=== PATIENT | female | born 1955 | race Caucasian/White ===

== ENCOUNTER → 2021-09-09 09:11 | Outpatient (POV) | payer SELFPAY | PROVIDERS: Visit Provider Dermatology | DX: Z00.00 Encounter for general adult medical examination without abnormal findings (principal) ==

== ENCOUNTER 2021-09-17 13:08 | Emergency (ER) | payer MEDICARE, SELFPAY ==
[2021-09-17 13:50] VITALS: BP 155/90; PULSE 70; RESP 20; TEMP 36.4; O2SAT 99; BMI 24.0
--- NOTE | 2021-09-17 14:44 | HMH.EDUTC ---
[facility] [place] Disposition Clinical Impression: Shingles Qualifiers: Herpes zoster complications: without complications Qualified Code(s): B02.9 - Zoster without complications Disposition: Home, Self-Care Condition on Discharge: Good Instructions: Shingles, DI for Shingles, Acyclovir Additional Instructions: Take medication as prescribed Return to the emergency department if: You have weakness in an arm or leg. You have dizziness, a severe headache, or hearing or vision loss. You have painful, red, warm skin around the blisters, or the blisters drain pus. Your neck is stiff or you have trouble moving it. Call your doctor if: A painful rash appears near your eye. The rash spreads to more areas and your pain worsens. You feel weak or have a headache. You have a cough, chills, or a fever. You have abdominal pain or nausea, or you are vomiting. You have questions or concerns about your condition or care. Self-care: Apply a cool, wet compress or take a cool bath. This may help decrease itching and pain. Keep your rash clean and dry. Cover your rash with a bandage. Do not use bandages with adhesive. Clothes may irritate your skin. Wash your hands often cover your cough Prescriptions: Acyclovir 800 mg PO 5XDAY 7 Days #35 tab Transmission Status: Pending to [id number] Referrals: Provider,Referral, [Primary Care Provider] - As needed Time of Disposition: 14:54 Medical Decision Making - Jose A Inquiry Pt receiving controlled substance: No Jose A was queried for this patient: No Vital Signs: 09/17/21 13:50 Temperature 97.6 F Temperature Source Oral Pulse Rate [Left Brachial] 70 Respiratory Rate 20 Blood Pressure [Left Arm] 155/90 H Blood Pressure Mean [Left Arm] 111 Blood Pressure Source [Left Arm] Automatic Cuff Blood Pressure Position [Left Arm] Sitting 02 Sat by Pulse Oximetry 99 Oxygen Delivery Method Room Air [facility] [place] HPI - General Stated complaint: painful rash Time Seen by Provider: 09/17/21 14:45 Mode of Arrival: Ambulatory Source of Information: Patient Limitations: No Limitations Description of Symptoms (Recalled from Triage Doc. by RN): PATIENT C/O PAINFUL AND BURNING RASH TO RIGHT SIDE OF NECK, RIGHT SHOULDER, CHEST, BEHIND RIGHT EAR AND ON HAIRLINE SINCE WEDNESDAY NIGHT HEENT Symptoms (Recalled from RN notes): No Resp Symptoms (Recalled from RN notes): No Skin Symptoms (Recalled from RN notes): Yes MS Symptoms (Recalled from RN notes): No Functional Status (Recalled from RN notes): WNL - History of Present Illness Provider Complaint: Patient states that she has had shingles before States that she thinks she may have it again States that she started with prickly like feeling on her skin behind her ear and since then she has developed a painful rash on the back of her ear, hairline, neck and shoulder area on on her chin States that it hurts when its touched or scratched - Related Data Home Medications Medication Instructions Recorded Confirmed Hydroxychloroquine Sulfate 400 mg PO DAILY 09/17/21 09/17/21 [Plaquenil 200mg tablet] Levothyroxine Sodium 125 mcg PO DAILY 09/17/21 09/17/21 [Levothyroxine 125mcg (0.125mg) Tab] Previous Rx's Medication Instructions Recorded Acyclovir 800 mg PO 5XDAY 7 Days #35 tab 09/17/21 Allergies Allergy/AdvReac Type Severity Reaction Status Date / Time celecoxib [From Celebrex] Allergy Verified 09/17/21 14:09 lidocaine Allergy Verified 09/17/21 14:09 morphine Allergy Verified 09/17/21 14:09 tetracaine Allergy Verified 09/17/21 14:09 - Worker's Comp Is this a Worker's Comp case?: No [facility] History - Hepatitis A Screen Attestation statement:: This patient has been screened for Hepatitis A risk factors. I have reviewed the patient's past medical history: Yes - Social History Alcohol Intake: never Occupational Status: other ROS Obtained: Yes All systems reviewed & no additional complaints, Yes Systems reviewed as appropria
[2021-09-17 14:56] VITALS: BP 155/90; PULSE 70; RESP 20; TEMP 36.4; O2SAT 99
== END 2021-09-17 15:05 | disposition home or self-care (01) ==
PROVIDERS: Emergency Provider Nurse Practitioner
DX: B02.9 Zoster without complications (principal); R21 Rash and other nonspecific skin eruption
CPT/HCPCS: 99212; G0463

== ENCOUNTER → 2022-01-06 09:20 | Outpatient (POV) | payer MEDICARE, SELFPAY | PROVIDERS: Visit Provider Dermatology | DX: Z00.00 Encounter for general adult medical examination without abnormal findings (principal) ==

== ENCOUNTER 2022-08-08 17:46 | Emergency (ER) | payer MEDICARE, SELFPAY ==
[2022-08-08 17:48] VITALS: BP 149/99; PULSE 83; RESP 16; TEMP 36.4; O2SAT 94; BMI 23.3
[2022-08-08 17:54] VITALS: BP 149/99; PULSE 88; RESP 18; TEMP 36.5; O2SAT 93; BMI 23.3
--- NOTE | 2022-08-08 18:16 | XR_ITS ---
PROCEDURE INFORMATION: Exam: XR Chest Exam date and time: 08/08/2022 6:13 PM Age: 67 years old Clinical indication: Shortness of breath; Additional info: SOA TECHNIQUE: Imaging protocol: Radiologic exam of the chest. Views: 2 views. COMPARISON: No relevant prior studies available. FINDINGS: Lungs: Unremarkable. No consolidation. Pleural spaces: Unremarkable. No pleural effusion. No pneumothorax. Heart/Mediastinum: Unremarkable. No cardiomegaly. Bones/joints: Unremarkable. IMPRESSION: No acute findings.
--- NOTE | 2022-08-08 18:31 | HMH.EDSOB ---
Discharge Plan Disposition Patient Disposition: Home, Self-Care Condition: Fair Prescriptions Prescriptions: New prednisone 20 mg tablet 60 mg PO DAILY Qty: 15 0RF albuterol sulfate 90 mcg/actuation HFA aerosol inhaler 2 inh inhalation Q6H PRN (Reason: shortness of breath or wheezing) Qty: 6.7 0RF No Action levothyroxine 125 MCG tablet 125 mcg PO DAILY hydroxychloroquine 200 MG tablet 400 mg PO DAILY acyclovir 800 MG tablet 800 mg PO 5XDAY 7 Days Qty: 35 0RF Referrals Follow up/Referrals: Gilda Baker MD [Primary Care Provider] - See instructions Activity Restrictions/Add. Instructions Additional Instructions/Restrictions: Take all medications as prescribed. Follow-up with your primary care doctor in about 2 to 3 days if you do not feel better. You have been given a shot of steroids today which will be good until tomorrow. Tomorrow you should start taking the medication that I have prescribed for you and sent to the local [facility] pharmacy. I also sent a prescription for an albuterol inhaler to the same pharmacy Clinical Impressions Clinical Impression: Asthma with exacerbation Discharge ED Provider: Stephen Saleh Resp/SOB HPI General Chief Complaint: Shortness of Breath/Dyspnea Stated Complaint: congestion, soa Time Seen by Provider: 08/08/22 18:30 Mode of Arrival: Ambulatory Limitations: No Limitations Description of Symptoms (Recalled from ER Triage Doc. by RN): Pt reports feeling like asthma is acting up, reports has has asthma in the past . Pt reports wheezes and having to use primetine mist inhaler otc at the pharmacy. Pt reports productive cough, no known fever. Pt also reports sinus drainage. Pt reports symptoms began approx 3 weeks ago but have been worsening. History of Present Illness The patient presents to the emergency department from the urgent treatment center for shortness of breath. She has a history of asthma. She has not used any inhalers recently. She also has a history of rheumatoid arthritis. She states that she has been coughing for the last week or 2. Her symptoms have worsened over the last few days. She denies smoking. She denies congestive heart failure. She denies renal failure. She also denies swelling. MD Complaint: shortness of breath, cough and asthma attack Related Data Home Medications Medication Instructions Recorded Confirmed hydroxychloroquine 200 mg tablet 400 mg PO DAILY . 09/17/21 09/17/21 levothyroxine 125 mcg tablet 125 mcg PO DAILY THYROID 09/17/21 09/17/21 Previous Rx's Medication Instructions Recorded acyclovir 800 mg tablet 800 mg PO 5XDAY 7 days #35 tabs 09/17/21 albuterol sulfate 90 mcg/actuation 2 inh inhalation Q6H PRN shortness 08/08/22 aerosol inhaler of breath or wheezing #6.7 grams prednisone 20 mg tablet 60 mg PO DAILY #15 tabs 08/08/22 Allergies Allergy/AdvReac Type Severity Reaction Status Date / Time celecoxib [From Celebrex] Allergy Verified 09/17/21 14:09 lidocaine Allergy Verified 09/17/21 14:09 morphine Allergy Verified 09/17/21 14:09 tetracaine Allergy Verified 09/17/21 14:09 PFSH [facility] Disclaimer: The information contained in this section may have been updated after the patient was seen, as this information can be updated by other users. Social History Smoking Status: Never smoker alcohol intake: never current occupational status: other Travel in the last 8 weeks: None ROS Obtained: Yes All systems reviewed & no additional complaints except as documented Physical Exam General General appearance: alert Head Head exam: atraumatic Eye Eye exam: Present normal appearance ENT ENT exam: Present normal exam Neck Neck exam: Present normal inspection and full ROM; Absent tenderness or meningismus Chest Chest inspection: Present normal inspection and symmetric chest wall rise; Absent tenderness Respiratory Respiratory exam: Present wheezes (Moderate diff
[2022-08-08 19:00] LABS: Coronavirus 19, PCR Not Detected (NotDetected); Influenza A, PCR Not Detected (NotDetected); Influenza B, PCR Not Detected (NotDetected)
[2022-08-08 19:38] VITALS: BP 148/88; PULSE 87; RESP 16; TEMP 36.6; O2SAT 97
== END 2022-08-08 19:44 | disposition home or self-care (01) ==
LOC: UTC 18:19 → ER 18:20
PROVIDERS: Emergency Provider Emergency Medicine; PCP Internal Medicine
DX: J45.901 Unspecified asthma with (acute) exacerbation (principal)
CPT/HCPCS: 71046; 96372; 99284; C9803; U0003; U0005

== ENCOUNTER → 2023-01-05 08:45 | Outpatient (POV) | payer MEDICARE, SELFPAY | PROVIDERS: Visit Provider Dermatology | DX: Z00.00 Encounter for general adult medical examination without abnormal findings (principal) ==

== ENCOUNTER 2024-03-12 13:59 | Emergency (ER) | payer MEDICARE, SELFPAY ==
[2024-03-12 14:00] VITALS: BP 211/116; PULSE 115; RESP 24; TEMP 36.6; O2SAT 93; BMI 23.3
--- NOTE | 2024-03-12 14:07 | ECG_ITS ---
APPROVED REPORT Exam: Resting ECG HR:110 bpm ECG Measurements Heart Rate 110 AXES KS 173 P 72 QRSd 93 QRS 68 QT 294 T 65 QTc 359 Conclusion SINUS TACHYCARDIA ABNORMAL RHYTHM ECG Electronically signed by : JAIME HANSON, 03/12/2024 15:44:13
--- NOTE | 2024-03-12 14:13 | ED_ITS ---
<Statement entered by eTjal Lobo DO - 03/12/24 20:23> I was consulted by the WILLIE, and we discussed the complexity of the problems being addressed. I approved the treatment and management plan for this patient's care in the emergency department, thus performing a substantive portion of the medical decision making. Patient given instructions to stop using epinephrine inhaler. She was treated appropriately with albuterol. Considered admission with borderline low oxygen saturations, but patient did not want to be admitted. Ultimately, she was discharged via patient directed discharge with treatment for asthma exacerbation. Tejal Lobo DO Discharge Plan Disposition Patient Disposition: Home, Self-Care Condition: Good Prescriptions Prescriptions: New prednisone 20 mg tablet 60 mg PO DAILY 5 Days Qty: 15 0RF albuterol sulfate 2.5 mg /3 mL (0.083 %) solution for nebulization 2.5 mg inhalation Q6H PRN (Reason: bronchospasm) Qty: 75 0RF (DME) nebulizer and compressor Device See Rx Instructions .Route Qty: 1 0RF Rx Instructions: As directed No Action prednisone 20 mg tablet 60 mg PO DAILY Qty: 15 0RF albuterol sulfate 90 mcg/actuation HFA aerosol inhaler 2 inh inhalation Q6H PRN (Reason: shortness of breath or wheezing) Qty: 6.7 0RF levothyroxine 125 MCG tablet 125 mcg PO DAILY hydroxychloroquine 200 MG tablet 400 mg PO DAILY acyclovir 800 MG tablet 800 mg PO 5XDAY 7 Days Qty: 35 0RF Referrals Follow up/Referrals: Gilda Baker MD [Referring] - See instructions Provider,MD Rolando [Primary Care Provider] - See instructions Activity Restrictions/Add. Instructions Additional Instructions/Restrictions: Return to the ER if your symptoms do not improve or worsen. Follow up with your PCP tomorrow for further management and workup of your lung nodules. Clinical Impressions Clinical Impression: Asthma with exacerbation, Lung nodule, Asthma exacerbation, Incidental pulmonary nodule Instructions Patient Instructions: Asthma -- Adult Print Language Print Language: [place] Discharge ED Provider: Tejal Lobo HPI <Piero Alvarado MD - Last Filed: 03/12/24 15:29> General Chief Complaint: Shortness of Breath/Dyspnea Stated Complaint: soa Time Seen by Provider: 03/12/24 14:05 Related Data Home Medications ?Medication ?Instructions ?Recorded ?Confirmed hydroxychloroquine 200 mg tablet 400 mg PO DAILY . 09/17/21 09/17/21 levothyroxine 125 mcg tablet 125 mcg PO DAILY THYROID 09/17/21 09/17/21 Previous Rx's ?Medication ?Instructions ?Recorded acyclovir 800 mg tablet 800 mg PO 5XDAY 7 days #35 tabs 09/17/21 albuterol sulfate 90 mcg/actuation 2 inh inhalation Q6H PRN shortness 08/08/22 aerosol inhaler of breath or wheezing #6.7 grams prednisone 20 mg tablet 60 mg (3 x 20 mg) PO DAILY #15 tabs 08/08/22 albuterol sulfate 2.5 mg/3 mL 2.5 mg (3 mL) inhalation Q6H PRN 03/12/24 (0.083 %) solution for nebulization bronchospasm #75 mL nebulizer and compressor #1 ea 03/12/24 prednisone 20 mg tablet 60 mg (3 x 20 mg) PO DAILY 5 days 03/12/24 #15 tabs Allergies Allergy/AdvReac Type Severity Reaction Status Date / Time celecoxib [From Celebrex] Allergy Verified 09/17/21 14:09 lidocaine Allergy Verified 09/17/21 14:09 morphine Allergy Verified 09/17/21 14:09 tetracaine Allergy Verified 09/17/21 14:09 <CHARI Mcginnis - Last Filed: 03/12/24 17:43> History of Present Illness HPI narrative: Patient presents c/o dyspnea since Wednesday. She does have a history of asthma, however does not take any medication for this. She has been using an OTC primatene inhaler without relief, as well as mucinex. She has had 1 week of sinus congestion and drainage prior to onset of symptoms. She also reports she has been trying to cough . She denies any fever. Denies any chest pain. Denies any fever. complaint: other (Denies chest pain) Onset (ago): day(s) (3) Duration: constant Severity: moderate Pain radiation: other (Denies pain) Relieving factors: nothing Exacerbating factors: exertion Context: recent illness and other (asthma) Associated symptoms: cough Risk Factors for CAD: Family Hx of CAD and Smoking (Quit smoking >30 years ago ) Treatments prior to or on arrival for Cardiac Chest Pain: other (epinephrine inhaler) PFSH <Piero Alvarado MD - Last Filed: 03/12/24 15:29> [facility] Disclaimer: The information contained in this section may have been updated after the patient was seen, as this information can be updated by other users. Social History Smoking Status: Never smoker alcohol intake: never current occupational status: other Travel in the last 8 weeks: None <CHARI Mcginnis - Last Filed: 03/12/24 17:43> ROS Obtained: Yes Systems reviewed as appropriate & no additional complaints except as documented Physical Exam <CHARI Mcginnis - Last Filed: 03/12/24 17:43> General General appearance: alert and in no apparent distress Head Head exam: atraumatic and normocephalic Eye Eye exam: Present normal appearance and EOMI ENT ENT exam: Present normal exam, normal oropharynx, mucous membranes moist, TM's normal bilaterally and normal external ear exam Chest Chest inspection: Present symmetric chest wall rise Respiratory Respiratory exam: Present wheezes (significant bilaterally ); Absent normal lung sounds bilaterally or stridor Cardiovascular Cardiovascular exam: Present regular rate and normal rhythm; Absent systolic murmur Neurological Exam Neurological exam: Present alert and oriented X3 Psychiatric Psychiatric exam: Present normal affect and normal mood Skin Skin exam: Present warm, dry and intact HEART Score <CHARI Mcginnis - Last Filed: 03/12/24 17:43> HEART Score HEART Score assessment performed?: Yes History (anamnesis): Slightly suspicious ECG: Normal Age: >65 years Risk factors: 1-2 risk factors Troponin: </= normal limit HEART Score: 3 Critical Care <CHARI Mcginnis - Last Filed: 03/12/24 17:43> Critical Care Time Critical Care Time: No Medical Decision Making <Piero Alvarado MD - Last Filed: 03/12/24 15:29> Vital Signs Vital Signs: 03/12/24 14:00 03/12/24 14:30 03/12/24 16:05 Temperature 97.8 F Temperature Source Oral Pulse Rate 93 H 95 H Pulse Rate [Right] 115 H Respiratory Rate 24 14 Blood Pressure 167/112 H 148/85 H Blood Pressure [Right Arm] 211/116 H Blood Pressure Mean Blood Pressure Mean [Right Arm] 147 02 Sat by Pulse Oximetry 93 L 95 93 L Oxygen Delivery Method Room Air Room Air 03/12/24 17:00 03/12/24 17:30 Temperature Temperature Source Pulse Rate 94 H 109 H Pulse Rate [Right] Respiratory Rate 11 L Blood Pressure 167/88 H Blood Pressure [Right Arm] Blood Pressure Mean 114 Blood Pressure Mean [Right Arm] 02 Sat by Pulse Oximetry 93 L 93 L Oxygen Delivery Method Lab Data Labs: Lab Results 03/12/24 14:24: WBC 4.2 L, RBC 4.79, Hgb 14.0, Hct 40.9, MCV 85.3, MCH 29.1, MCHC 34.2, RDW 13.2, Plt Count 256, MPV 7.3 L, Neut % (Auto) 53.6, Lymph % (Auto) 28.6, [place] % (Auto) 6.1, Eos % (Auto) 10.5, Baso % (Auto) 1.1, Neut # (Auto) 2.3, Lymph # (Auto) 1.2, [place] # (Auto) 0.3, Eos # (Auto) 0.4, Baso # (Auto) 0.1, D-Dimer 0.71 H, Sodium 134 L, Potassium 4.3, Chloride 101, Carbon Dioxide 23, Anion Gap 14.3, BUN 8, Creatinine 0.70, Estimated Creat Clear 55, Estimated GFR 83, Est GFR ( Amer) 100, Glucose 169 H, Calcium 9.8, Total Bilirubin 0.6, AST 28, ALT 16, Alkaline Phosphatase 107, Troponin I < 0.01, NT-Pro-B Natriuret Pep 79.0, Total Protein 7.4, Albumin 4.4, Globulin 3.0, Albumin/Globulin Ratio 1.5, HIV 1&2 Antibody Rapid Nonreactive 03/12/24 14:31: VBG pH 7.38, VBG pCO2 45.1, VBG pO2 41.2 H, VBG HCO3 26.0, VBG Total CO2 27.3 H, VBG O2 Saturation 75.8 H, VBG Base Excess 0.8, VBG Lactic Acid 2.3 H 03/12/24 14:43: SARS-CoV-2 (PCR) Not detected, Influenza A Untype (PCR) Not detected, Influenza Type B (PCR) Not detected 03/12/24 14:24 03/12/24 14:24 Response Orders (Tests/Meds): ED MEDICATIONS Discontinued Medications Generic Name Dose Route Start Last Admin Trade Name Freq PRN Reason Stop Dose Admin Albuterol Sulfate 2 puff 03/12/24 17:26 Albuterol-Hfa 90mcg/Puff Inhaler 8gm 04/11/24 17:25 Q4HP PRN Shortness Of Breath Albuterol Sulfate 2 puff 03/12/24 17:32 Albuterol-Hfa 90mcg/Puff Inhaler 8gm 03/12/24 17:33 ONCE ONE Albuterol/Ipratropium 9 ml 03/12/24 14:21 03/12/24 14:22 Ipratropium/Albuterol 3 Ml [facility] 03/12/24 14:22 9 ml ONCE ONE Administration Albuterol/Ipratropium 3 ml 03/12/24 14:17 03/12/24 14:26 Ipratropium/Albuterol 3 Ml [facility] 03/12/24 14:18 Not Given ONCE ONE Albuterol/Ipratropium 6 ml 03/12/24 14:22 Ipratropium/Albuterol 3 Ml [facility] 03/12/24 14:23 ONCE ONE Magnesium Sulfate 2 gm in 50 mls @ 50 mls/hr 03/12/24 14:17 03/12/24 14:27 Magnesium Sulfate 2gm/50ml Premix IV 03/12/24 15:16 50 mls/hr ONCE ONE Administration Iopamidol 70 ml 03/12/24 16:27 03/12/24 16:36 Iopamidol-370 (76%);100ml Bottle IV 03/12/24 16:28 70 ml ONCE ONE Administration Methylprednisolone Sodium Succinate 125 mg 03/12/24 14:17 03/12/24 14:27 Methylprednisolone Sod Succ 125mg Vial IM 03/12/24 14:18 125 mg ONCE ONE Administration Sodium Chloride 50 ml 03/12/24 16:27 03/12/24 16:36 0.9 % Sodium Chloride 50 Ml Vial IV 03/12/24 16:28 50 ml ONCE ONE Administration Sodium Chloride 10 ml 03/12/24 16:27 03/12/24 16:36 Sodium Chloride 0.9% 10ml Syr (Rad Only) IV 03/12/24 16:28 10 ml ONCE ONE Administration ORDERS Category Date Time Status CTA Chest [CT angio chest PE protocol] Stat Cat Scan 03/12/24 16:00 Completed XR chest 2V Stat Exams 03/12/24 14:18 Completed Complete Blood Count Auto Diff Stat Lab 03/12/24 14:24 Completed Comprehensive Metabolic Panel Stat Lab 03/12/24 14:24 Completed D-Dimer Stat Lab 03/12/24 14:24 Completed HIV (1&2) Antibody Rapid Stat Lab 03/12/24 14:24 Completed Hep C Ab with Reflex to RNA Stat Lab 03/12/24 14:24 Received NT Pro Brain Natriuretic Pep. Stat Lab 03/12/24 14:24 Completed Rapid PCR Covid and Flu A/B Stat Lab 03/12/24 14:43 Completed Troponin I Q3H Lab 03/12/24 17:30 Ordered Troponin I Q3H Lab 03/12/24 20:30 Ordered Troponin I Stat Lab 03/12/24 14:24 Completed Venous Blood Gas Stat RT 03/12/24 14:31 Completed ECG Data Tracing #1: ECG Narrative: Independently interpreted by me rate is 110, rhythm is regular, axis is normal, no ST elevation in anatomical contiguous leads, QTc 359 <CHARI Mcginnis - Last Filed: 03/12/24 17:43> Jose A Inquiry Pt receiving controlled substance: No Vital Signs Vital Signs: 03/12/24 14:00 03/12/24 14:30 03/12/24 16:05 Temperature 97.8 F Temperature Source Oral Pulse Rate 93 H 95 H Pulse Rate [Right] 115 H Respiratory Rate 24 14 Blood Pressure 167/112 H 148/85 H Blood Pressure [Right Arm] 211/116 H Blood Pressure Mean Blood Pressure Mean [Right Arm] 147 02 Sat by Pulse Oximetry 93 L 95 93 L Oxygen Delivery Method Room Air Room Air 03/12/24 17:00 03/12/24 17:30 Temperature Temperature Source Pulse Rate 94 H 109 H Pulse Rate [Right] Respiratory Rate 11 L Blood Pressure 167/88 H Blood Pressure [Right Arm] Blood Pressure Mean 114 Blood Pressure Mean [Right Arm] 02 Sat by Pulse Oximetry 93 L 93 L Oxygen Delivery Method Lab Data Labs: Lab Results 03/12/24 14:24: WBC 4.2 L, RBC 4.79, Hgb 14.0, Hct 40.9, MCV 85.3, MCH 29.1, MCHC 34.2, RDW 13.2, Plt Count 256, MPV 7.3 L, Neut % (Auto) 53.6, Lymph % (Auto) 28.6, [place] % (Auto) 6.1, Eos % (Auto) 10.5, Baso % (Auto) 1.1, Neut # (Auto) 2.3, Lymph # (Auto) 1.2, [place] # (Auto) 0.3, Eos # (Auto) 0.4, Baso # (Auto) 0.1, D-Dimer 0.71 H, Sodium 134 L, Potassium 4.3, Chloride 101, Carbon Dioxide 23, Anion Gap 14.3, BUN 8, Creatinine 0.70, Estimated Creat Clear 55, Estimated GFR 83, Est GFR ( Amer) 100, Glucose 169 H, Calcium 9.8, Total Bilirubin 0.6, AST 28, ALT 16, Alkaline Phosphatase 107, Troponin I < 0.01, NT-Pro-B Natriuret Pep 79.0, Total Protein 7.4, Albumin 4.4, Globulin 3.0, Albumin/Globulin Ratio 1.5, HIV 1&2 Antibody Rapid Nonreactive 03/12/24 14:31: VBG pH 7.38, VBG pCO2 45.1, VBG pO2 41.2 H, VBG HCO3 26.0, VBG Total CO2 27.3 H, VBG O2 Saturation 75.8 H, VBG Base Excess 0.8, VBG Lactic Acid 2.3 H 03/12/24 14:43: SARS-CoV-2 (PCR) Not detected, Influenza A Untype (PCR) Not detected, Influenza Type B (PCR) Not detected Response Orders (Tests/Meds): ED MEDICATIONS Discontinued Medications Generic Name Dose Route Start Last Admin Trade Name Freq PRN Reason Stop Dose Admin Albuterol Sulfate 2 puff 03/12/24 17:26 Albuterol-Hfa 90mcg/Puff Inhaler 8gm 04/11/24 17:25 Q4HP PRN Shortness Of Breath Albuterol Sulfate 2 puff 03/12/24 17:32 Albuterol-Hfa 90mcg/Puff Inhaler 8gm 03/12/24 17:33 ONCE ONE Albuterol/Ipratropium 9 ml 03/12/24 14:21 03/12/24 14:22 Ipratropium/Albuterol 3 Ml Neb 03/12/24 14:22 9 ml ONCE ONE Administration Albuterol/Ipratropium 3 ml 03/12/24 14:17 03/12/24 14:26 Ipratropium/Albuterol 3 Ml [facility] 03/12/24 14:18 Not Given ONCE ONE Albuterol/Ipratropium 6 ml 03/12/24 14:22 Ipratropium/Albuterol 3 Ml [facility] 03/12/24 14:23 ONCE ONE Magnesium Sulfate 2 gm in 50 mls @ 50 mls/hr 03/12/24 14:17 03/12/24 14:27 Magnesium Sulfate 2gm/50ml Premix IV 03/12/24 15:16 50 mls/hr ONCE ONE Administration Iopamidol 70 ml 03/12/24 16:27 03/12/24 16:36 Iopamidol-370 (76%);100ml Bottle IV 03/12/24 16:28 70 ml ONCE ONE Administration Methylprednisolone Sodium Succinate 125 mg 03/12/24 14:17 03/12/24 14:27 Methylprednisolone Sod Succ 125mg Vial IM 03/12/24 14:18 125 mg ONCE ONE Administration Sodium Chloride 50 ml 03/12/24 16:27 03/12/24 16:36 0.9 % Sodium Chloride 50 Ml Vial IV 03/12/24 16:28 50 ml ONCE ONE Administration Sodium Chloride 10 ml 03/12/24 16:27 03/12/24 16:36 Sodium Chloride 0.9% 10ml Syr (Rad Only) IV 03/12/24 16:28 10 ml ONCE ONE Administration ORDERS Category Date Time Status CTA Chest [CT angio chest PE protocol] Stat Cat Scan 03/12/24 16:00 Completed XR chest 2V Stat Exams 03/12/24 14:18 Completed Complete Blood Count Auto Diff Stat Lab 03/12/24 14:24 Completed Comprehensive Metabolic Panel Stat Lab 03/12/24 14:24 Completed D-Dimer Stat Lab 03/12/24 14:24 Completed HIV (1&2) Antibody Rapid Stat Lab 03/12/24 14:24 Completed Hep C Ab with Reflex to RNA Stat Lab 03/12/24 14:24 Received NT Pro Brain Natriuretic Pep. Stat Lab 03/12/24 14:24 Completed Rapid PCR Covid and Flu A/B Stat Lab 03/12/24 14:43 Completed Troponin I Q3H Lab 03/12/24 17:30 Ordered Troponin I Q3H Lab 03/12/24 20:30 Ordered Troponin I Stat Lab 03/12/24 14:24 Completed Venous Blood Gas Stat RT 03/12/24 14:31 Completed Radiology Data #1: Image(s): Chest (CXR: IMPRESSION: 1. No acute disease. 2. COPD. 3. Possible developing asymmetric density in the medial right upper lung field. This may be summation shadows but developing mass not totally excluded. Advise further assessment with chest CT. The need for emergent CT can be determined c) CT Data CT Scan: Chest (Ct chest IMPRESSION: 1. No acute disease. 2. No suspicious mass that corresponds to the chest x-ray finding indicating finding on chest x-ray was summation shadows. 3. Bilateral nodules largest measuring 9 x 5 mm on the right.) Time Received: 17:43 MDM Narrative Medical Decision Narrative: In summary patient is a 68-year-old who presents the emergency department for evaluation of shortness of. Patient is tachycardic, hypertensive, mildly hypoxic upon arrival, A-fib. Significant wheezing on exam. Differential diagnosis includes asthma exacerbation, pneumonia, ACS, pulmonary embolism. Initial workup will be conducted with hematologic labs, chest x-ray, COVID and flu swab, D-dimer, EKG, troponin. Tachycardia and hypertension likely due to taking OTC epinephrine inhaler 10 times today. Initial inventions include Solu- Medrol, magnesium, DuoNeb. Initial workup reviewed by me D dimer negative per years criteria, CTA ordered for possible mass on CXR, CT was negative for PE and showed pulmonary nodule. Upon repeat evaluation resolution of wheezing, O2 improved and ambulated without hypoxia. Offered admission, patient declined. Will start prednisone and albuterol as an outpatient. Advised to return to ED for any worsening. Patient is agreeable. Follow up with PCP for further management of asthma and pulmonary nodule. I personally reviewed the CXR which was negative for pneumonia.
--- NOTE | 2024-03-12 14:18 | XR_ITS ---
PROCEDURE INFORMATION: Exam: XR Chest Exam date and time: 03/12/2024 2:48 PM Age: 68 years old Clinical indication: Shortness of breath; Additional info: SOA, wheezing TECHNIQUE: Imaging protocol: Radiologic exam of the chest. Views: 2 views. COMPARISON: CR XR CHEST 2V 08/08/2022 6:13 PM FINDINGS: Lungs: Hyperinflation compatible with emphysematous changes. Asymmetric density noted in the medial right upper lung silvestre just inferior to the proximal right clavicle and overlying the 6th posterior rib noted on the PA view not clearly seen on the previous chest x-ray. Lungs are otherwise clear. Pleural spaces: Unremarkable. No pleural effusion. No pneumothorax. Heart/Mediastinum: Unremarkable. No cardiomegaly. Bones/joints: Unremarkable. IMPRESSION: 1. No acute disease. 2. COPD. 3. Possible developing asymmetric density in the medial right upper lung field. This may be summation shadows but developing mass not totally excluded. Advise further assessment with chest CT. The need for emergent CT can be determined clinically.
[2024-03-12] MEDS: IPRATROPIUM/ALBUTEROL 3 ML NEB 9 ML IH (14:22)
[2024-03-12] MEDS: MAGNESIUM SULFATE IN WATER 2 GM/50 ML PIGGYBACK IV (14:27)
[2024-03-12] MEDS: METHYLPREDNISOLONE SOD SUCC 125MG VIAL 125 MG IM (14:27)
--- NOTE | 2024-03-12 14:29 | HMH.ITSTN ---
pt getting breathing treatment at this time, will check back soon to see if ready for xray
[2024-03-12 14:30] VITALS: BP 167/112; PULSE 93; RESP 14; O2SAT 95
[2024-03-12 14:32] LABS: Basophils # 0.1 K/mm3 (0-0.2); Basophils % 1.1 % (0.1-2.0); Eosinophils # 0.4 K/mm3 (0.0-0.4); Eosinophils % 10.5 % (0.1-12.0); Hematocrit 40.9 % (37.0-47.0); Lymphocytes # 1.2 K/mm3 (0.7-4.5); Lymphocytes % 28.6 % (10-50); Mean Corpuscular HGB Conc 34.2 g/dL (31.8-35.4); Mean Corpuscular Hemoglobin 29.1 pg (27.0-31.2); Mean Corpuscular Volume 85.3 fl (81-99); Mean Platelet Volume 7.3 fl (7.4-10.4); Monocytes # 0.3 K/mm3 (0.1-1.0); Monocytes % 6.1 % (1.7-9.3); Neutrophils # 2.3 K/mm3 (1.8-7.8); Neutrophils % 53.6 % (37.0-80.0); Platelet Count 256 K/mm3 (142-424); Red Blood Count 4.79 M/mm3 (4.20-5.40); Red Cell Distribution Width 13.2 % (11.5-17.5); White Blood Count 4.2 K/mm3 (4.8-10.8)
[2024-03-12 14:37] LABS: VBG Base Excess 0.8 mmol/L (-2.4-2.3); VBG Oxygen Saturation 75.8 % (50-70); VBG PCO2 45.1 mmol/L (35-51); VBG PH 7.38 mmol/L (7.31-7.41); VBG PO2 41.2 mmol/L (28-40); VBG Total CO2 27.3 mmol/L (23-27)
[2024-03-12 14:39] LABS: Lactate Venous 2.3 mmol/L (0.4-2.0)
[2024-03-12 14:48] LABS: Coronavirus 19, PCR Not Detected (NotDetected); Influenza A, PCR Not Detected (NotDetected); Influenza B, PCR Not Detected (NotDetected)
[2024-03-12 14:52] LABS: D-Dimer 0.71 ug/mL (0.0-0.5)
[2024-03-12 15:53] LABS: Albumin Level 4.4 g/dl (3.5-5.0); Chloride 101 mmol/L (98-107); Potassium 4.3 mmoL/L (3.5-5.1); Sodium 134 mmol/L (136-145)
[2024-03-12 15:56] LABS: Alanine Aminotransferase 16 U/L (12-78); Albumin/Globulin Ratio 1.5 (1.1-1.8); Alkaline Phosphatase 107 U/L (38-126); Anion Gap 14.3 mEq/L (5-15); Aspartate Amino Transferase 28 U/L (14-36); Bilirubin,Total 0.6 mg/dl (0.2-1.3); Blood Urea Nitrogen 8 mg/dl (7-17); Calcium 9.8 mg/dl (8.4-10.2); Carbon Dioxide 23 mmol/L (22.0-30.0); Creatinine Clearance Estimated 55 mL/min (50-200); Estimated Glomerular Filt Rate 83 ml/min (>60); GFR (African American) 100 ML/MIN (>60); Glucose 169 mg/dl (74-100); Total Protein,Serum 7.4 g/dl (6.3-8.2)
--- NOTE | 2024-03-12 16:00 | CT_ITS ---
PROCEDURE INFORMATION: Exam: CTA Chest With Contrast Exam date and time: 03/12/2024 4:23 PM Age: 68 years old Clinical indication: Other: Dyspnea, R/O mass on cxr TECHNIQUE: Imaging protocol: Computed tomographic angiography of the chest with contrast. Exam focused on the arteries. 3D rendering (Not supervised by radiologist): MIP and/or 3D reconstructed images were created by the technologist. Radiation optimization: All CT scans at this facility use at least one of these dose optimization techniques: automated exposure control; mA and/or kV adjustment per patient size (includes targeted exams where dose is matched to clinical indication); or iterative reconstruction. Contrast material: ISOVUE 370; Contrast volume: 70 ml; Contrast route: INTRAVENOUS (IV); COMPARISON: CR XR CHEST 2V 03/12/2024 2:48 PM FINDINGS: Pulmonary arteries: Normal. No pulmonary emboli. Aorta: Unremarkable. No aortic aneurysm. No aortic dissection. Lungs: No suspicious nodule or mass in the area in question on the chest x-ray suggesting finding on chest x-ray was due to summation shadows. No acute pulmonary disease identified. A 3 mm nodule anterior right middle lobe on image 80 of series 5. A nodule noted in the lateral right upper lobe on image 58 measuring 9 x 5 mm. A 5 mm left upper lobe nodule on image 74 series 5. A 2 mm nodule lateral left lower lobe on image 94. Lung silvestre otherwise clear. Pleural spaces: Unremarkable. No pneumothorax. No pleural effusion. Heart: Unremarkable. No cardiomegaly. No pericardial effusion. Lymph nodes: Unremarkable. No enlarged lymph nodes. Bones/joints: Unremarkable. No acute fracture. Soft tissues: Unremarkable. IMPRESSION: 1. No acute disease. 2. No suspicious mass that corresponds to the chest x-ray finding indicating finding on chest x-ray was summation shadows. 3. Bilateral nodules largest measuring 9 x 5 mm on the right. For patients at low risk (minimal or absent history of smoking and of other known risk factors), recommend CT Chest at 3-6 months, then consider CT Chest at 18-24 months. For patients at high risk (history of smoking or of other known risk factors), recommend CT Chest at 3-6 months, then CT Chest at 18-24 months. (Reference: Shaniqua) REFERENCES: Shaniqua Harris et al. Guidelines for Management of Incidental Pulmonary Nodules Detected on CT Images: From the Fleischner Society 2017. Radiology. 2017;284(1):228-243.
[2024-03-12 16:05] VITALS: BP 148/85; PULSE 95; O2SAT 93
[2024-03-12 16:10] LABS: Troponin I < 0.01 ng/ml (0.00-0.034)
[2024-03-12 16:18] LABS: HIV (1&2) Antibody Rapid NONREACTIVE (NONREACTIVE)
--- NOTE | 2024-03-12 16:23 | PC.NURSE ---
pt going ct
[2024-03-12] MEDS: 0.9 % SODIUM CHLORIDE 50 ML VIAL IV (16:36)
[2024-03-12] MEDS: SODIUM CHLORIDE 0.9% 10ML SYR (RAD ONLY) 10 ML IV (16:36)
[2024-03-12] MEDS: IOPAMIDOL-370 (76%);100ML BOTTLE 70 ML IV (16:36)
[2024-03-12 17:00] VITALS: BP 167/88; PULSE 94; RESP 11; O2SAT 93
--- NOTE | 2024-03-12 17:21 | PC.NURSE ---
i ambulated pt around the unit. saturation on room air during walking was between 88-93%
[2024-03-12 17:30] VITALS: PULSE 109; O2SAT 93
[2024-03-12] MEDS: ALBUTEROL-HFA 90MCG/PUFF INHALER 8GM 2 PUFF IH (17:43)
[2024-03-12 17:56] VITALS: BP 156/88; PULSE 89; RESP 16; TEMP 36.7; O2SAT 97
[2024-03-12 18:39] LABS: Reflex Lactic Add Lactic Reflex
[2024-03-14 09:22] LABS: HCV Ab Non Reactive (Non Reactive)
== END 2024-03-12 17:57 | disposition home or self-care (01) ==
PROVIDERS: Emergency Medicine; Physician Assistant; Emergency Provider Emergency Medicine
DX: J45.901 Unspecified asthma with (acute) exacerbation (principal); R91.1 Solitary pulmonary nodule; R06.00 Dyspnea, unspecified; R09.81 Nasal congestion; R09.82 Postnasal drip
CPT/HCPCS: 71046; 71275; 80053; 82803; 83880; 84484; 85025; 85378; 86803; 87389; 87636; 93005; 96365; 96372; 99285; J2919; J3475; J7620; Q9967